=== PATIENT | male | born 1970 | race Caucasian/White ===

== ENCOUNTER 2021-09-18 05:27 | Day surgery (SDC) | payer BC, OTHER ==
[2021-09-15 11:59] VITALS: BMI 35.7
[2021-09-18] MEDS ORDERED: MIDAZOLAM HCL 2 MG/2 ML SINGLE DOSE VIAL ONE ×2 (10:08)
[2021-09-18] MEDS ORDERED: LIDOCAINE 1%/EPI 1:100000 (20 ML MULTI DOSE VIAL) IJ ONE (10:45)
[2021-09-18] MEDS ORDERED: BUPIVACAINE HCL/PF 0.5% (5MG/ML) 10 ML VIAL IJ ONE (10:45)
[2021-09-18] MEDS ORDERED: PROPOFOL 20 ML ONE (10:47)
[2021-09-18 16:22] VITALS: BP 128/81; PULSE 73; TEMP 98
== END 2021-09-18 13:00 | disposition home or self-care (01) ==
LOC: JASU-SURG 05:27
PROVIDERS: ATTEND Podiatrist Foot Surgery
PROC: XK02303 Introduction of Concentrated Bone Marrow Aspirate into Muscle, Percutaneous Approach, New Technology Group 3 (ICD-10-PCS; 2021-09-18)
PROC: 0MQS0ZZ Repair Right Foot Bursa and Ligament, Open Approach (ICD-10-PCS; principal; 2021-09-18 10:00)
DX: S93.621A Sprain of tarsometatarsal ligament of right foot, initial encounter (principal); X58.XXXA Exposure to other specified factors, initial encounter; Y93.9 Activity, unspecified; Y92.9 Unspecified place or not applicable
CPT/HCPCS: 0232T; 28899

== ENCOUNTER 2023-08-01 08:33 | Day surgery (SDC) | payer OTHER ==
[2023-07-16 10:07] VITALS: BMI 40.3
[2023-08-01] MEDS ORDERED: BUPIVACAINE HCL/PF 2.5 MG/ML - 30 ML VIAL IJ ONE (10:01)
[2023-08-01] MEDS ORDERED: ONDANSETRON 4 MG/2 ML VIAL IVPUSH PRN (10:17)
[2023-08-01] MEDS ORDERED: oxyCODONE HCL 5 MG TABLET PO PRN (10:17)
[2023-08-01] MEDS ORDERED: PROPOFOL 20 ML ONE (10:26)
[2023-08-01] MEDS ORDERED: MIDAZOLAM HCL 2 MG/2 ML SINGLE DOSE VIAL ONE (10:26)
[2023-08-01] MEDS ORDERED: LACTATED RINGERS SOLUTION 1,000 ML IV SCH (10:30)
[2023-08-01 12:59] VITALS: RESP 16; TEMP 97.1
[2023-08-01 13:46] VITALS: BP 131/91; PULSE 68
== END 2023-08-01 13:35 | disposition home or self-care (01) ==
LOC: FASU 08:33
PROVIDERS: ATTEND Orthopaedic Surgery
PROC: 0SBC4ZZ Excision of Right Knee Joint, Percutaneous Endoscopic Approach (ICD-10-PCS; 2023-08-01)
PROC: 0SBC4ZZ Excision of Right Knee Joint, Percutaneous Endoscopic Approach (ICD-10-PCS; principal; 2023-08-01 11:03)
DX: S83.241A Other tear of medial meniscus, current injury, right knee, initial encounter (principal); S83.281A Other tear of lateral meniscus, current injury, right knee, initial encounter; S83.8X1A Sprain of other specified parts of right knee, initial encounter; M65.861 Other synovitis and tenosynovitis, right lower leg; X58.XXXA Exposure to other specified factors, initial encounter; Y93.9 Activity, unspecified; Y92.9 Unspecified place or not applicable
CPT/HCPCS: 94760